=== PATIENT | female | born 1995 | race Caucasian/White ===

== ENCOUNTER 2018-04-23 05:54 | Day surgery (SDC) | payer BC ==
[2018-04-23] MEDS: LIDOCAINE 1%/EPI (1:100,000) (MDV) 20 ML
[2018-04-23] MEDS ORDERED: LACTATED RINGER'S 1,000 ML IV* (06:00)
[2018-04-23] MEDS ORDERED: CEFAZOLIN 2 GM/50 ML (PMX) 50 ML IVPB (06:00)
[2018-04-23 07:10] LABS: INR 0.95; PROTIME 12.8 Sec (11.9-14.9)
[2018-04-23 07:11] LABS: PARTIAL THROMBOPLASTIN TIME 28.9 Sec (23.0-35.0)
[2018-04-23] MEDS ORDERED: MIDAZOLAM (2 MG/ML) 5 ML CUP PO (07:15)
[2018-04-23] MEDS ORDERED: PROPOFOL 20 ML (07:30)
[2018-04-23] MEDS ORDERED: LIDOCAINE 2% (SDV) 5 ML INJ (07:30)
[2018-04-23] MEDS ORDERED: CEFAZOLIN 1 GM INJ (07:55)
[2018-04-23] MEDS ORDERED: ONDANSETRON 4 MG INJ (07:55)
[2018-04-23] MEDS ORDERED: MEPERIDINE 100 MG INJ (07:55)
[2018-04-23] MEDS ORDERED: METOCLOPRAMIDE 10 MG INJ (07:55)
[2018-04-23] MEDS: BUPIVACAINE 0.5% (SDV) 30 ML INJ (08:20)
[2018-04-23] MEDS: GENTAMICIN 80 MG INJ (08:20)
[2018-04-23] MEDS: POLYMYXIN/BACITRACIN 1L IRRIG (08:20)
[2018-04-23] MEDS ORDERED: ONDANSETRON 4 MG INJ IV (09:00)
[2018-04-23] MEDS ORDERED: METOCLOPRAMIDE 10 MG INJ IV (09:00)
[2018-04-23] MEDS ORDERED: HYDROmorphONE 1 MG/5 ML IV SYRINGE IV ×3 (09:00)
[2018-04-23] MEDS ORDERED: MEPERIDINE 25 MG INJ IV (09:00)
[2018-04-23] MEDS ORDERED: OXYCODONE/ACETAMINOPHEN (5/325) TAB PO ×2 (09:00)
[2018-04-23] MEDS ORDERED: DIPHENHYDRAMINE 50 MG INJ IV (09:00)
[2018-04-23] MEDS ORDERED: MIDAZOLAM 1 MG/ML 2 ML INJ IV (09:00)
[2018-04-23] MEDS ORDERED: FENTAnyl 50 MCG/ML VIAL IV ×3 (09:00)
[2018-04-23] MEDS: MUPIROCIN 2% 22 GM OINT TOP (09:26)
[2018-04-23] MEDS ORDERED: NALOXONE (0.4 MG/ML) INJ (09:34)
== END 2018-04-23 12:50 | disposition home or self-care (01) ==
LOC: SDS 05:54
DX: D17.22 Benign lipomatous neoplasm of skin and subcutaneous tissue of left arm (principal)
CPT/HCPCS: 11406; 85610; 85730; 88307